=== PATIENT | female | born 1950 | race Caucasian/White ===

== ENCOUNTER → 2022-01-11 | Outpatient (CLI) | payer OTHER ==
[~2022-01-11] MED LIST: ALENDRONATE SOD70 MG PO; ESOM20 PO; MULVITA; RXHYDMOR2 PO
[2022-01-11 10:12] LABS: Source, Urine Clean Catch
[2022-01-11 14:19] LABS: Appearance, Urine Clear (Clear); Bilirubin, Urine Neg (Neg); Blood, Urine 5+ (Neg); Color, Urine Yellow (P-Yellow); Glucose Qualitative, Urine Neg (Neg); Ketones, Urine 1+ (Neg); Leukocyte Esterase, Urine Neg (Neg); Nitrite, Urine Neg (Neg); Protein, Urine Neg (Neg); Specific Gravity, Urine 1.025 (1.003-1.022); Urobilinogen, Urine NORM (Normal)
[2022-01-11 15:01] LABS: Red Blood Cells, Urine TNTC /hpf (0-2)
[2022-01-11 15:02] LABS: Bacteria Few /hpf; Squamous Epithelial Cells Few /hpf (Few); White Blood Cells, Urine 0-2 /hpf (0-5)
== END ==
LOC: LAB 10:11 → LAB SHORT 10:11
PROVIDERS: Family Medicine
DX: R30.9 Painful micturition, unspecified (principal)
CPT/HCPCS: 81001; 87086

== ENCOUNTER 2025-08-03 09:49 | Day surgery (SDC) | payer OTHER ==
[~2025-08-03] VITALS: Ht 162.6 cm; Wt 60.4 kg
[~2025-08-03 09:49] MED LIST changes: +LOSA50 PO; +NS 500 ML IV ONE; +SERT100 PO
[2025-08-03] MEDS ORDERED: Sodium Bicarb 8.4% 1 MEQ/ML 50 ML Vial ONE (09:59)
[2025-08-03] MEDS ORDERED: Lidocaine 1%-Epineph 1:100000 20 ML MDV ONE (10:03)
[2025-08-03] MEDS ORDERED: NS 500 ML IV ONE (10:36)
[2025-08-03] MEDS ORDERED: Midazolam HCl 1MG / ML 2ML Vial ONE ×2 (11:31→11:57)
--- NOTE | 2025-08-03 12:04 | NUR ---
08/03/25 1204 AVERY ISSA AND ANESTHESIA AT BEDSIDE NOW
[2025-08-03 12:49] VITALS: BP 125/62
== END 2025-08-03 13:28 | disposition home or self-care (01) ==
LOC: ORSCSDS 09:49
PROVIDERS: Orthopaedic Surgery
PROC: 0JBJ0ZZ Excision of Right Hand Subcutaneous Tissue and Fascia, Open Approach (ICD-10-PCS; principal; 2025-08-03 12:15)
PROC: 01N54ZZ Release Median Nerve, Percutaneous Endoscopic Approach (ICD-10-PCS; principal; 2025-08-03 12:15)
DX: G56.03 Carpal tunnel syndrome, bilateral upper limbs (principal); D21.11 Benign neoplasm of connective and other soft tissue of right upper limb, including shoulder; I10 Essential (primary) hypertension; E78.5 Hyperlipidemia, unspecified; F41.9 Anxiety disorder, unspecified; F32.A Depression, unspecified; Z79.899 Other long term (current) drug therapy
CPT/HCPCS: 88305; J2250; J2704; J7040

== ENCOUNTER 2025-09-07 12:07 | Day surgery (SDC) | payer OTHER ==
[~2025-09-07] VITALS: Ht 162.6 cm; Wt 65.0 kg
[~2025-09-07 12:07] MED LIST changes: +Lidocaine 1%-Epineph 1:100000 20 ML MDV ONE
[2025-09-07] MEDS ORDERED: [UNRECOGNIZED DRUG - CODE] PO (12:38)
[2025-09-07] MEDS ORDERED: NS 500 ML IV ONE (12:49)
[2025-09-07] MEDS ORDERED: Midazolam HCl 1MG / ML 2ML Vial ONE ×2 (12:57→13:56)
[2025-09-07] MEDS ORDERED: FentaNYL Citrate 50 MCG/ML 2 ML Injection ONE (13:55)
--- NOTE | 2025-09-07 14:32 | NUR ---
09/07/25 1432 [facility]SI[facility] LOCAL INJECTION LEFT WRIST 1424 10ML LIDOCAIN 1% W/ EPI [id number] BY DR BRIZUELA
[2025-09-07 15:07] VITALS: BP 114/63
== END 2025-09-07 15:08 | disposition home or self-care (01) ==
LOC: ORSCSDS 12:07
PROVIDERS: Orthopaedic Surgery
PROC: 01N54ZZ Release Median Nerve, Percutaneous Endoscopic Approach (ICD-10-PCS; principal; 2025-09-07 14:00)
DX: G56.02 Carpal tunnel syndrome, left upper limb (principal); I10 Essential (primary) hypertension; E78.5 Hyperlipidemia, unspecified; F41.9 Anxiety disorder, unspecified; F32.A Depression, unspecified; Z79.899 Other long term (current) drug therapy
CPT/HCPCS: J2250; J3010; J7040